=== PATIENT | female | born 1950 | race Caucasian/White ===

== ENCOUNTER → 2017-01-01 | Outpatient (CLI) | payer MEDICARE, BC | END | disposition home or self-care (01) | LOC: MAMMO 10:14 | PROVIDERS: ATTEND Physician Assistant Medical | DX: Z12.31 Encounter for screening mammogram for malignant neoplasm of breast (principal) | CPT/HCPCS: G0202; 77067 ==

== ENCOUNTER → 2017-07-26 | Outpatient (CLI) | payer MEDICARE, BC ==
[~2017-07-26] MED LIST: IOHEXOL 240 MG/ML 50ML VIAL. ONE; IOHEXOL 300 MG/ML 75 ML VIAL. IV ONE
[2017-07-26 11:05] LABS: GFR 55.6
--- NOTE | 2017-07-26 12:35 | RAD ---
CT abdomen pelvis with oral contrast only Indication: Right lower quadrant pain Technique: Noncontrast CT imaging was performed of the abdomen and pelvis, multiplanar reconstruction images submitted. Oral contrast was given. One or more of the following individualized dose reduction techniques were utilized for this examination: 1. Automated exposure control 2. Adjustment of the mA and/or kV according to patient size 3. Use of iterative reconstruction technique. Comparison: None Findings: There is mild probable fibrotic change right lower lobe near the lung base. Accurate evaluation of abdominal visceral organs is limited without intravenous contrast. There is no obvious focal abnormality of the spleen or mostly fat replaced pancreas. There are some small foci of nonspecific calcification of the posterior right lobe of the liver near the capsular margin. Gallbladder is surgically absent. There is no hydronephrosis or renal calculus. Normal appendix is visualized. Bowel is not dilated. There is no free air or free fluid. There is mild sigmoid diverticulosis. There is no adrenal nodularity. There is degenerative disc disease and spondylosis greatest at L5-S1, L2-3, L1-2. IMPRESSION: 1. No significant acute abnormality is identified, no CT evidence of acute appendicitis. There is mild sigmoid diverticulosis. Electronically signed by: Toribio Lawrence MD (07/26/2017 12:32 PM) [email or web address]
== END | disposition home or self-care (01) ==
LOC: CT 09:39
PROVIDERS: ATTEND Physician Assistant Medical
DX: K57.30 Diverticulosis of large intestine without perforation or abscess without bleeding (principal); M47.896 Other spondylosis, lumbar region; M51.36 Other intervertebral disc degeneration, lumbar region; Z90.49 Acquired absence of other specified parts of digestive tract
CPT/HCPCS: 36415; 74176; 82565; 84520; Q9966; Q9967

== ENCOUNTER → 2019-02-25 | Outpatient (CLI) | payer MEDICARE, BC ==
--- NOTE | 2019-02-25 16:12 | RAD ---
EXAM: LEFT FOOT 3 VIEWS. HISTORY: Left foot pain and redness. COMPARISON: None. FINDINGS: Three views of the left foot are obtained. There is a healed nondisplaced fracture of the fourth proximal phalanx. Alignment is normal. 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 There are moderate plantar and posterior calcaneal spurs. Soft tissue calcifications project along the distal leg. IMPRESSION: 1. Subacute chronic fracture of the fourth proximal phalanx. 2. Moderate midfoot osteoarthritis. Electronically signed by: Jennifer Orona MD (02/25/2019 4:09 PM) [id number]
== END | disposition home or self-care (01) ==
LOC: PMG 08:33
PROVIDERS: ATTEND Physician Assistant Medical
DX: M19.072 Primary osteoarthritis, left ankle and foot (principal); M77.32 Calcaneal spur, left foot
CPT/HCPCS: 73630

== ENCOUNTER → 2019-03-18 | Outpatient (CLI) | payer MEDICARE, BC ==
--- NOTE | 2019-03-18 08:16 | RAD ---
Examination: CERVICAL SPINE 5V History: Right upper extremity radiculopathy. No known injury. Comparison/Correlation: None Findings: A total of 7 images of the cervical spine were obtained.. Prevertebral soft tissues are normal. Right C3-4 neural foraminal narrowing of moderate extent is noted. Uncovertebral joint degenerative change noted. Dens and lateral masses are unremarkable. Alignment is unremarkable. Mild C6/7 disc space narrowing is present. Mild spurring of the radial bodies from C4 to C7 noted. Impression: Mild degenerative change. Electronically signed by: Manjit Jean MD (03/18/2019 8:13 AM) [facility]
== END | disposition home or self-care (01) ==
LOC: PMG 07:39
PROVIDERS: ATTEND Physician Assistant Medical
DX: M47.812 Spondylosis without myelopathy or radiculopathy, cervical region (principal); M48.02 Spinal stenosis, cervical region; M46.02 Spinal enthesopathy, cervical region
CPT/HCPCS: 72050

== ENCOUNTER → 2020-04-16 | Outpatient (CLI) | payer MEDICARE, BC ==
--- NOTE | 2020-04-16 15:12 | RAD ---
SHOULDER 2+V LEFT DATE: 04/16/2020 12:00 AM INDICATION: Reason: SHOULDER PAIN / Spl. Instructions: / History: COMPARISON: None. FINDINGS: Bones: There is no evidence of acute fracture or dislocation. Joints: Moderate degenerative changes of the acromioclavicular joint. Glenohumeral joint is congruent. The acromiohumeral distance is not narrowed. Miscellaneous: No abnormal soft tissue calcifications in the shoulder. IMPRESSION: No acute osseous abnormality. Moderate AC joint osteoarthritis. Electronically signed by: Toribio Doan MD (04/16/2020 3:09 PM) [facility]
== END | disposition home or self-care (01) ==
LOC: DXRAD 10:54
PROVIDERS: ATTEND Physician Assistant Medical
DX: M19.012 Primary osteoarthritis, left shoulder (principal)
CPT/HCPCS: 73030

== ENCOUNTER → 2020-10-28 | Outpatient (CLI) | payer MEDICARE, BC ==
--- NOTE | 2020-10-28 12:24 | RAD ---
EXAMINATION: US DPLX VENOUS EXTREMITY LOWER LT, 10/28/2020 11:03 AM CLINICAL INDICATION: Left lower extremity pain COMPARISON: None Available. PROCEDURE: Multiple grayscale, color Doppler and spectral Doppler sonographic images of the left lowe r extremity were obtained. FINDINGS: There is occlusive acute thrombus extending from the left common femoral vein through the p rofunda femoris, superficial femoral, and popliteal veins. Peroneal vein is not visualized and may al so be occluded. Posterior tibial veins are patent. The greater saphenous vein appears patent near the common femoral vein. The right common femoral vein was not evaluated. IMPRESSION: Extensive occlusive acute deep venous thrombosis in the left lower extremity extending fr om the common femoral vein through at least the popliteal vein, and possibly in the calf. FOR INTERNAL CODING PURPOSES Critical result: Findings discussed with Dr. Hubbard's nurse at 10/28/2020 12:21 PM. RESULT CODE: (C) Electronically signed by: Francie Madison MD (10/28/2020 12:21 PM) [id number]
== END ==
LOC: US 10:54
PROVIDERS: ATTEND Physician Assistant
DX: I82.412 Acute embolism and thrombosis of left femoral vein (principal); I82.432 Acute embolism and thrombosis of left popliteal vein
CPT/HCPCS: 93971

== ENCOUNTER → 2020-12-21 | Outpatient (CLI) | payer MEDICARE, BC ==
--- NOTE | 2020-12-21 15:08 | RAD ---
XR HUMERUS_RT 2 VIEWS, XR ELBOW COMPLETE_RIGHT 3+ VIEWS Clinical Indication: Reason: FALL SUNDAY / . Instructions: / History: Comparison: None. Findings: No acute fracture or dislocation of the elbow. There is no elbow joint effusion. There is a moderate sized olecranon enthesophyte. There is no acute fracture of the humerus. There is AC arthropathy. There is no glenohumeral dislocat ion. No soft tissue swelling is seen. There is no radiopaque foreign body. IMPRESSION: No acute fracture. Electronically signed by: Dalton Ford MD (12/21/2020 3:06 PM) [id number]
== END ==
LOC: PMG 13:58
PROVIDERS: ATTEND Nurse Practitioner Family
DX: M25.421 Effusion, right elbow (principal); M77.8 Other enthesopathies, not elsewhere classified; M19.011 Primary osteoarthritis, right shoulder
CPT/HCPCS: 73060; 73080